=== PATIENT | female | born 1985 | race Hispanic/Latino ===

== ENCOUNTER 2018-07-20 00:05 | Emergency (ER) | payer BC ==
[2018-07-20 00:17] VITALS: BP 104/63; PULSE 74; RESP 18; TEMP 98.4; O2SAT 99
[2018-07-20] MEDS ORDERED: Sodium Chloride 0.9% 1,000 ML IV STA (00:45)
--- NOTE | 2018-07-20 00:48 | ED PDOC ---
HPI: Headache Time Seen by Provider: 07/20/18 00:25 Chief Complaint (Nursing): Headache Chief Complaint (Provider): headache History Per: Patient History/Exam Limitations: no limitations Onset/Duration Of Symptoms: Days ( 1 week) Current Symptoms Are (Timing): Still Present Quality: "Pain" Associated Symptoms: Photophobia, Nausea, Vomiting Additional Complaint(s): 32 y/o female history of migraine headaches presents for evaluation of ongoing headaches x 1 week. Associated vomiting today. Patient states she has been take Sumitriptan without improvement. Patient was evaluated by her Neurologist today and given a "nerve block" which did not help; patient was advised to go to the ED if symptoms improved for IV fluids and Toradol. Patient states this feels like a typical migraine presentation of hers, just more intense. Denies fever, dizziness, extremity numbness/weakness, neck/back pain, vision changes, chest pain, shortness of breath, palpitations. Patient took Promethazine tonight for nausea which helped Past Medical History Reviewed: Historical Data, Nursing Documentation, Vital Signs Vital Signs: Last Vital Signs Temp 98.4 F 07/20/18 00:14 Pulse 74 07/20/18 00:14 Resp 18 07/20/18 00:14 BP 104/63 07/20/18 00:14 Pulse Ox 99 07/20/18 00:14 Primary Care Provider: Non [facility] Provider, - Medical History PMH: Migraine - Surgical History Surgical History: No Surg Hx - Family History Family History: States: Unknown Family Hx - Living Arrangements Living Arrangements: With Family - Home Medications Home Medications: Ambulatory Orders Medication Instructions Recorded Acetaminophen/Butalbital/Caf 1 tab PO Q6 PRN #15 tab 07/20/18 [Fioricet] - Allergies Allergies/Adverse Reactions: Allergies Allergy/AdvReac Type Severity Reaction Status Date / Time No Known Allergies Allergy Verified 07/20/18 00:14 Review of Systems ROS Statement: Except As Marked, All Systems Reviewed And Found Negative Neurological: Positive for: Headache Physical Exam - Reviewed Nursing Documentation Reviewed: Yes Vital Signs Reviewed: Yes - Physical Exam Appears: Positive for: Well, Non-toxic, Uncomfortable Head Exam: Positive for: ATRAUMATIC, NORMAL INSPECTION, NORMOCEPHALIC Skin: Positive for: Normal Color Eye Exam: Positive for: Normal appearance, EOMI, PERRL ENT: Positive for: Normal ENT Inspection Cardiovascular/Chest: Positive for: Regular Rate, Rhythm Respiratory: Positive for: Normal Breath Sounds Gastrointestinal/Abdominal: Positive for: Normal Exam Back: Positive for: Normal Inspection Extremity: Positive for: Normal ROM Neurological/Psych: Positive for: Awake, Alert, Oriented (x3) - Laboratory Results Result Diagrams: 07/20/18 01:17 07/20/18 01:17 - ECG O2 Sat by Pulse Oximetry: 99 - Progress ED Course And Treament: -upreg -cbc -cmp -IV toradol -IV reglan -PO tylenol On re-eval, patient states headache improved. Tolerating PO. Patient educated on findings, discharged with rx Fioricet Advised follow up with Neurologist within 2-3 days Return precautions given Disposition - Clinical Impression Clinical Impression: Migraine - Patient ED Disposition Is Patient to be Admitted: No Counseled Patient/Family Regarding: Studies Performed, Diagnosis, Need For Followup, Rx Given - Disposition Disposition: Routine/Home Disposition Time: 03:30 Condition: IMPROVED Prescriptions: Acetaminophen/Butalbital/Caf [Fioricet] 1 tab PO Q6 PRN #15 tab PRN Reason: Headache Instructions: Migraine Headaches in Adults Forms: [facility] ([place])
[2018-07-20 01:47] LABS: ALB/GLOB RATIO 1.6 (1.0-2.1); ALBUMIN 4.5 g/dL (3.5-5.0); ALT/SGPT 28 U/L (9-52); AST/SGOT 34 U/L (14-36); BASO % 0.3 % (0.0-2.0); BLOOD UREA NITROGEN 12 mg/dl (7-17); CALCIUM 9.6 mg/dL (8.4-10.2); GFR NON-AFRICAN AMERICAN > 60; HEMOGLOBIN 14.1 g/dL (12.0-16.0); LYMPH # 0.7 K/uL (1.0-4.3); LYMPH % 9.9 % (20.0-40.0); MEAN CELL VOLUME 91.6 fl (81.0-99.0); MEAN CORPUSCULAR HEMOGLOBIN 30.7 pg (27.0-31.0); MEAN CORPUSCULAR HGB CONC 33.6 g/dL (33.0-37.0); MEAN PLATELET VOLUME 9.4 fl (7.2-11.7); MONO # 0.5 K/uL (0.0-0.8); MONO % 6.6 % (0.0-10.0); NEUT # 6.2 K/uL (1.8-7.0); NEUT % 83.2 % (50.0-75.0); PLATELET COUNT 152 K/uL (130-400); RED CELL DISTRIBUTION WIDTH 12.8 % (11.5-14.5); WHITE BLOOD COUNT 7.4 K/uL (4.8-10.8)
[2018-07-20 02:47] LABS: BANDS 1 % (0-2); BASOPHIL 1 % (0-2); LYMPHOCYTE 8 % (20-50); MONOCYTE 3 % (0-10); NEUTROPHIL 87 % (42-75); TOTAL CELLS COUNTED 100
[2018-07-20 02:48] LABS: ANISOCYTOSIS SLIGHT; HYPOCHROMIC SLIGHT; LARGE PLATELETS PRESENT; PLATELET ESTIMATE NORMAL (NORMAL)
== END 2018-07-20 03:30 | disposition home or self-care (01) ==
LOC: H.ER 00:05
DX: G43.909 Migraine, unspecified, not intractable, without status migrainosus (principal)
CPT/HCPCS: 80053; 81025; 85025; 96361; 96374; 96375; 99283; J1885; J2765; J7030